=== PATIENT | female | born 1990 | race Caucasian/White ===

== ENCOUNTER 2019-03-19 12:18 | Emergency (ER) | payer BC, OTHER ==
--- NOTE | 2019-03-19 12:47 | ERPHSYRPT ---
- History of Present Illness Time Seen by Provider: 03/19/19 12:28 Source: patient Exam Limitations: no limitations Patient Subjective Stated Complaint: Pt states "at 0930 my right eye got blurry and I had a headache. At 1130 the right side of my mouth and tongue got numb as well as my right index finger and thumb. It only lasted 10 minutes. I am having no numbness or pain at this time." Triage Nursing Assessment: Pt presented through the front alert and oriented X 3 , skin pwd Pt ambulates with an upright steady gait, able to speak in clear full sentences. PT able to speak in clear full sentences. Pt in no apparent respiratory distress. Physician History: Pt started c/o gen. headaches at 09:30 AM, with right eye blurring, 2 hours later started c/o numbness in the right side of her tongue and lip as well as the right thumb and index finger. The numbness resolved in about 10 minutes as well as the headaches. She has a history of "Migraine" headaches in the past, she has never had numbness with it, denies nausea, vomiting, focal weakness, loss of vision, or balance, no slurred speech, confusion, other complaints except mild dyspnea. She ambulates without difficulty, she went to the clinic and was sent here. She was started on control pills 8 months ago, her mother had similar symptoms on control, when she was 26 years old, diagnosed with TIA, and her symptoms never recurred after she stopped taking control pills. Timing/Duration: hour(s) (3) Severity: mild Character of Deficits: none Deficits: no difficulties Baseline/Normal Cognition: alert 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 Current Cognition: alert 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 Baseline Gait: walks w/o assistance Associated Symptoms: paresthesia, vision changes, headache Allergies/Adverse Reactions: No Known Drug Allergies Allergy (Unverified 03/19/19 12:42) Hx Tetanus, Diphtheria Vaccination/Date Given: No Hx Influenza Vaccination/Date Given: No Hx Pneumococcal Vaccination/Date Given: No Immunizations Up to Date: Yes - Review of Systems Constitutional: No Symptoms Eyes: Vision Changes Ears, Nose, & Throat: No Symptoms Respiratory: Dyspnea Cardiac: No Symptoms Abdominal/Gastrointestinal: No Symptoms Genitourinary Symptoms: No Symptoms Musculoskeletal: No Symptoms Skin: No Symptoms Neurological: Headache, Parasthesia Psychological: No Symptoms All Other Systems: Reviewed and Negative - Past Medical History Pertinent Past Medical History: Yes Neurological History: Migraines ENT History: No Pertinent History Cardiac History: Hypertension Respiratory History: No Pertinent History Endocrine Medical History: No Pertinent History Musculoskeletal History: No Pertinent History GI Medical History: No Pertinent History History: No Pertinent History Psycho-Social History: No Pertinent History Female Reproductive Disorders: No Pertinent History - Past Surgical History Past Surgical History: No - Social History Smoking Status: Current some day smoker How long have you smoked: years Exposure to second hand smoke: Yes Drug Use: none Patient Lives Alone: No - Female History Hx Last Menstrual Period: 03/01/2019 Hx Now: No - Nursing Vital Signs Nursing Vital Signs: Initial Vital Signs Temperature 98.2 F 03/19/19 12:26 Pulse Rate 84 03/19/19 12:26 Respiratory Rate 18 03/19/19 12:26 Blood Pressure 155/110 03/19/19 12:26 O2 Sat by Pulse Oximetry 98 03/19/19 12:26 Pain Scale Pain Intensity 0 - Cece Coma Scale Best Eye Response ([place]): (4) open spontaneously Best Verbal Response ([place]): (5) oriented Best Motor Response ([place]): (6) obeys commands Cece Total: 15 - Physical Exam General Appearance: no apparent distress Eye Exam: bilateral eye: PERRL, EOMI Ears, Nose, Throat Exam: normal ENT inspection, pharynx normal, moist mucous membranes Neck Exam: normal inspection, non-tender, supple, No carotid bruit, No JVD, No lymphadenopathy Respiratory: normal breath sounds, lungs clear, airway intact Cardiovascular: regular rate/rhythm, normal heart sounds, normal peripheral pulses, capillary refill <2 sec, No murmur Gastrointestinal: soft, normal bowel sounds, No tenderness Back Exam: normal inspection, No CVA tenderness, No vertebral tenderness Extremity Exam: normal inspection, No calf tenderness, No raghav's sign, No pedal edema Peripheral Pulses: carotid (R): 3+, carotid (L): 3+, dorsalis-pedis (R): 3+, dorsalis-pedis (L): 3+ Mental Status: alert, 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, 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 Exam: normal speech, PERRL, No abnormal speech Coordination/Gait: normal finger to nose, normal gait, normal cerebellar function Motor/Sensory: no motor deficit, no sensory deficit DTR: bicep (R): 2+, bicep (L): 2+, knee (R): 2+, knee (L): 2+, ankle (R): 2+, ankle (L): 2+ Skin Exam: normal color, warm, dry, No rash, No petechiae, No jaundice, No cyanosis, No diaphoresis SpO2 Interpretation: normal SpO2: 98 O2 Delivery: Room Air - Course Nursing assessment & vital signs reviewed: Yes EKG Interpreted by Me: RATE (0/min), NORMAL AXIS, NORMAL INTERVALS, NORMAL QRS, NORMAL ST-T - CT Exams Head CT Interpretation: Negative, Tele-radiologist Report Chest CT Interpretation: Tele-radiologist Report, No PE, Other (LLL ground glass opacity, R/o Pneumonia) Ordered Tests: Active Orders 24 hr Category Date Time Status IV Insertion STAT Care 03/19/19 12:37 Active CHEST WITH CONTRAST [CT] Stat Exams 03/19/19 13:27 Completed HEAD WITHOUT CONTRAST [CT] Stat Exams 03/19/19 12:38 Completed CBC W DIFF Stat Lab 03/19/19 12:40 Completed CK-Creatinine Phosphokinase Stat Lab 03/19/19 12:40 Completed CMP Stat Lab 03/19/19 12:40 Completed D-DIMER QUANTITATION Stat Lab 03/19/19 12:40 Completed Erythrocyte Sedimentation Rate Stat Lab 03/19/19 12:40 Completed HCG,QUALITATIVE URINE Stat Lab 03/19/19 13:30 Completed MAGNESIUM Stat Lab 03/19/19 12:40 Completed NT PRO BNP Stat Lab 03/19/19 12:40 Completed PROTIME WITH INR Stat Lab 03/19/19 12:40 Completed PTT Stat Lab 03/19/19 12:40 Completed TROPONIN Q3H Lab 03/19/19 12:40 Completed TROPONIN Q3H Lab 03/19/19 15:45 Ordered TROPONIN Q3H Lab 03/19/19 18:45 Ordered TROPONIN Q3H Lab 03/19/19 21:45 Ordered TROPONIN Q3H Lab 03/20/19 00:45 Ordered Medication Summary Generic Name Dose Route Start Last Admin Trade Name Freq PRN Reason Stop Dose Admin Aspirin 325 mg 03/19/19 15:04 Ecotrin 325 Mg PO 03/19/19 15:05 NOW ONE Lab/Rad Data: Laboratory Result Diagrams 03/19/19 12:40 03/19/19 12:40 Laboratory Results 03/19/19 03/19/19 03/19/19 Range/Units 13:30 12:40 12:40 WBC (4.0-10.5) K/mm3 RBC (4.1-5.4) M/mm3 Hgb (12.0-16.0) gm/dl Hct (35-47) % MCV (78-100) fl MCH (26-32) pg MCHC (32-36) g/dl RDW (11.5-14.0) % Plt Count (150-450) K/mm3 MPV (6-9.5) fl Gran % (36.0-66.0) % Eos # (Auto) (0-0.5) Absolute Lymphs (auto) (1.0-4.6) Absolute Monos (auto) (0.0-1.3) Lymphocytes % (24.0-44.0) % Monocytes % (0.0-12.0) % Eosinophils % (0.00-5.0) % Basophils % (0.0-0.4) % Absolute Granulocytes (1.4-6.9) Basophils # (0-0.4) ESR (0-20) mm/hr PT 11.0 (9.95-12.35) SECONDS INR 0.97 (0.8-3.0) APTT 27.2 (25.3-37.0) SECONDS D-Dimer 1598 H* (215-500) ng/mL Sodium (137-145) mmol/L Potassium (3.5-5.1) mmol/L Chloride (98-107) mmol/L Carbon Dioxide (22-30) mmol/L Anion Gap (5-15) MEQ/L BUN (7-17) mg/dL Creatinine (0.52-1.04) mg/dL Estimated GFR ML/MIN Glucose (74-106) mg/dL Calcium (8.4-10.2) mg/dL Magnesium (1.6-2.3) mg/dL Total Bilirubin (0.2-1.3) mg/dL AST (14-36) U/L ALT (0-35) U/L Alkaline Phosphatase (38-126) U/L Creatine Kinase (30-135) U/L Troponin I < 0.012 (0.000-0.034) ng/mL NT-Pro-B Natriuret Pep (0-450) pg/mL Serum Total Protein (6.3-8.2) g/dL Albumin (3.5-5.0) g/dL Urine HCG, Qual NEGATIVE (Negative) 03/19/19 03/19/19 Range/Units 12:40 12:40 WBC 5.6 (4.0-10.5) K/mm3 RBC 4.52 (4.1-5.4) M/mm3 Hgb 12.2 (12.0-16.0) gm/dl Hct 37.2 (35-47) % MCV 82.3 (78-100) fl MCH 27.0 (26-32) pg MCHC 32.8 (32-36) g/dl RDW 15.1 H (11.5-14.0) % Plt Count 235 (150-450) K/mm3 MPV 11.5 H (6-9.5) fl Gran % 55.3 (36.0-66.0) % Eos # (Auto) 0.34 (0-0.5) Absolute Lymphs (auto) 1.81 (1.0-4.6) Absolute Monos (auto) 0.36 (0.0-1.3) Lymphocytes % 32.1 (24.0-44.0) % Monocytes % 6.4 (0.0-12.0) % Eosinophils % 6.0 H (0.00-5.0) % Basophils % 0.2 (0.0-0.4) % Absolute Granulocytes 3.12 (1.4-6.9) Basophils # 0.01 (0-0.4) ESR 14 (0-20) mm/hr PT (9.95-12.35) SECONDS INR (0.8-3.0) APTT (25.3-37.0) SECONDS D-Dimer (215-500) ng/mL Sodium 138 (137-145) mmol/L Potassium 3.8 (3.5-5.1) mmol/L Chloride 105 (98-107) mmol/L Carbon Dioxide 23 (22-30) mmol/L Anion Gap 13.9 (5-15) MEQ/L BUN 13 (7-17) mg/dL Creatinine 0.72 (0.52-1.04) mg/dL Estimated GFR > 60.0 ML/MIN Glucose 123 H (74-106) mg/dL Calcium 9.6 (8.4-10.2) mg/dL Magnesium 1.5 L (1.6-2.3) mg/dL Total Bilirubin 0.50 (0.2-1.3) mg/dL AST 24 (14-36) U/L ALT 13 (0-35) U/L Alkaline Phosphatase 54 (38-126) U/L Creatine Kinase 108 (30-135) U/L Troponin I (0.000-0.034) ng/mL NT-Pro-B Natriuret Pep 54.8 (0-450) pg/mL Serum Total Protein 7.9 (6.3-8.2) g/dL Albumin 4.1 (3.5-5.0) g/dL Urine HCG, Qual (Negative) - Progress Progress: unchanged Progress Note: 03/19/19 15:06 She remained asymptomatic, denies any pain, headaches, weakness, numbness, no fever, nausea, dizziness, reviewed her results and called Dr Alanis, discussed our results and her current condition, he agreed to discharge her on Aspirin daily and to start Po Zithromax, he will follow up and start outpatient workup, patient was advised to stop taking control pills. Discussed with : Zeke Will see patient in: office Counseled pt/family regarding: lab results, diagnosis, need for follow-up, rad results - Departure Departure Disposition: Home Clinical Impression: Migraine Qualifiers: Migraine type: unspecified Status migrainosus presence: without status migrainosus Intractability: not intractable Qualified Code(s): G43.909 - Migraine, unspecified, not intractable, without status migrainosus Pneumonia Qualifiers: Pneumonia type: due to unspecified organism Laterality: left Lung location: lower lobe of lung Qualified Code(s): J18.1 - Lobar pneumonia, unspecified organism Condition: Stable Critical Care Time: No Referrals: SHERI CRISTINA [Primary Care Provider] - Instructions: Pneumonia, Adult (DC), Paresthesias (DC), Migraine Headache (DC) , Transient Ischemic Attack (DC) Additional Instructions: Rest x 2-3 days, and stop taking control pills, start aspirin daily as directed, and follow up with your physician in 1-2 days, return if severe headaches, sudden numbness, weakness, slurred speech o visual changes or shortness of breath, chest pain, fever> 102 F! Prescriptions: Aspirin 325 mg PO DAILY #15 tablet Azithromycin 250 mg [Zithromax 250 MG TABLET] 250 mg PO ZPACK #6 tablet
[2019-03-19 13:03] LABS: BASOPHIL % 0.2 % (0.0-0.4); Basophil (Absolute #) 0.01 (0-0.4); Eosinophil (Absolute #) 0.34 (0-0.5); Granulocyte Absolute (ANC) 3.12 (1.4-6.9); Granulocytes % 55.3 % (36.0-66.0); Hematocrit 37.2 % (35-47); Hemoglobin 12.2 gm/dl (12.0-16.0); INR 0.97 (0.8-3.0); Lymphocyte (Absolute #) 1.81 (1.0-4.6); Lymphocytes % 32.1 % (24.0-44.0); Mean Cell Volume 82.3 fl (78-100); Mean Corpuscular Hgb Concent. 32.8 g/dl (32-36); Mean Platelet Volume 11.5 fl (6-9.5); Monocyte (Absolute #) 0.36 (0.0-1.3); Monocytes % 6.4 % (0.0-12.0); Platelet Count 235 K/mm3 (150-450); Red Blood Count 4.52 M/mm3 (4.1-5.4); Red Cell Distribution Width 15.1 % (11.5-14.0); White Blood Count 5.6 K/mm3 (4.0-10.5)
[2019-03-19 13:06] LABS: PTT 27.2 SECONDS (25.3-37.0)
[2019-03-19 13:21] LABS: ALBUMIN 4.1 g/dL (3.5-5.0); ALKALINE PHOSPHATASE 54 U/L (38-126); ANION GAP 13.9 MEQ/L (5-15); BLOOD UREA NITROGEN 13 mg/dL (7-17); CHLORIDE 105 mmol/L (98-107); CK-Creatinine Phosphokinase 108 U/L (30-135); Calcium 9.6 mg/dL (8.4-10.2); Carbon Dioxide 23 mmol/L (22-30); Creatinine 1 0.72 mg/dL (0.52-1.04); Glucose 123 mg/dL (74-106); MAGNESIUM 1.5 mg/dL (1.6-2.3); NT PRO BNP 54.8 pg/mL (0-450); Potassium 3.8 mmol/L (3.5-5.1); SGOT/AST 24 U/L (14-36); SGPT/ALT 13 U/L (0-35); SODIUM 138 mmol/L (137-145); Total Protein 7.9 g/dL (6.3-8.2)
[2019-03-19 13:38] LABS: Erythrocyte Sedimentation Rate 14 mm/hr (0-20)
--- NOTE | 2019-03-19 14:46 | XRAY ---
Indication: Headache and vision problems. Multiple contiguous axial images obtained through the head without contrast. Comparison: None Normal appearing brain parenchyma, ventricles, and bony calvarium. Visualized paranasal sinuses and mastoid air cells are clear. Impression: Normal CT head without contrast exam. CT DI 70.00
--- NOTE | 2019-03-19 14:52 | XRAY ---
Indication: Dyspnea. Elevated d-dimer. Mouth and left hand numbness. Multiple contiguous axial images obtained through the chest using 80 cc Isovue 300 contrast and PE protocol. Comparison: None There is satisfactory opacification of the pulmonary arteries to include the lobar and segmental branches. No filling defect or pulmonary embolus. Heart is not enlarged. Aorta is normal in course and caliber. No pathologic mediastinal/hilar lymphadenopathy. Examination of the lung parenchyma demonstrates subtle left lower lobe patchy groundglass airspace opacity. No suspicious pulmonary mass, consolidation, or effusion. Bony thorax intact. Limited upper abdomen is unremarkable. Impression: 1. Negative pulmonary embolus. 2. Left lower lobe patchy groundglass airspace opacity. Rule out pneumonia clinically. CT DI 22.78
[2019-03-19] MEDS ORDERED: Ecotrin 325 MG PO ONE (15:04)
[2019-03-19 15:07] VITALS: BP 137/96; PULSE 71
[2019-03-19] MEDS ORDERED: BABY ASPIRIN 81 MG CHEW ONE (15:07)
[2019-03-19 15:10] VITALS: O2SAT 98
== END 2019-03-19 15:28 | disposition home or self-care (01) ==
LOC: ED 12:18
DX: G43.909 Migraine, unspecified, not intractable, without status migrainosus (principal)
CPT/HCPCS: 36000; 36415; 70450; 71260; 80053; 82550; 83735; 83880; 84484; 84703; 85025; 85379; 85610; 85652; 85730; 93005; 99284; A9270-GY